=== PATIENT | male | born 1945 | race Caucasian/White ===

== ENCOUNTER 2017-01-14 12:17 | Emergency (ER) | payer MEDICARE, BC ==
[2017-01-14] MEDS ORDERED: Sodium Chloride 0.9% 1,000 ML IV ONE (13:15)
[2017-01-14] MEDS ORDERED: Ondansetron 4 MG/2 ML SDV IVPUSH ONE (13:15)
[2017-01-14 13:56] VITALS: BP 151/89
[2017-01-14 14:00] LABS: CHLORIDE,CL 104 mmol/L (98-115); SODIUM,NA 142 mmol/L (136-145)
--- NOTE | 2017-01-14 14:26 | EDM.PDOC ---
ED HPI GI/ABDOMINAL - General Stated Complaint: DIARRHEA, NAUSEA, VOMITING Time Seen by Provider: 01/14/17 13:15 Source of Information: Reports: Patient History Limitations: Reports: No limitations - History of Present Illness INITIAL COMMENTS - FREE TEXT/NARRATIVE: Patient presents with vomiting and diarrhea. Diarrhea started last night and vomiting several times today. He is feeling lightheaded when he stands up now. Pt is getting chemotherapy for pancreatic cancer stage 4. He is developing ascites but has never had to have it drained. His talked to the oncologist in [place] today and they advised he come to local ER for evaluation and fluids then send up to them if the ascites needs draining. He is scheduled to go to [place] tomorrow for chemotherapy again. The patient and his tell me that his abdomen is growing larger noticeably just since this morning. - Related Data Allergies/ADRs: Allergies Allergy/AdvReac Type Severity Reaction Status Date / Time ibuprofen Allergy Stomach Verified 01/14/17 13:50 Upset Home Meds: Home Meds Gabapentin [Neurontin] 300 mg PO BID 10/04/16 [History] Sertraline [Zoloft] 50 mg PO 0900 01/14/17 [History] Past Medical History HEENT History: Reports: Impaired vision Cardiovascular History: Reports: High cholesterol, Hypertension Respiratory History: Reports: None Gastrointestinal History: Reports: Diverticulosis Genitourinary History: Reports: Other (see below) Other Genitourinary History: urinary frequency, dribbling Musculoskeletal History: Reports: Other (see below) Other Musculoskeletal History: Left leg fracture Neurological History: Reports: TIA Psychiatric History: Reports: None Endocrine/Metabolic History: Reports: None Immunologic History: Reports: Immunosuppression Oncologic (Cancer) History: Reports: Pancreatic Dermatologic History: Reports: None - Infectious Disease History Infectious Disease History: Reports: Other (see below) Other Infectious Disease History: malaria - Past Surgical History Head Surgeries/Procedures: Reports: None HEENT Surgical History: Reports: None Cardiovascular Surgical History: Reports: None Respiratory Surgical History: Reports: None GI Surgical History: Reports: Colonoscopy, EGD, Polypectomy Male Surgical History: Reports: None Endocrine Surgical History: Reports: None Neurological Surgical History: Reports: None Musculoskeletal Surgical History: Reports: None Oncologic Surgical History: Reports: None Social & Family History - Family History Family Medical History: Noncontributory HEENT: Reports: None Cardiac: Reports: Other (see below) (mother with unknown heart problems) Respiratory: Reports: Other (see below) (father with pulmonary problems) GI: Reports: None : Reports: None OBGYN: Reports: None Musculoskeletal: Reports: None Neurological: Reports: None Psychiatric: Reports: None Endocrine/Metabolic: Reports: None Hematologic: Reports: None Immunologic: Reports: None Dermatologic: Reports: None Oncologic: Reports: Other (see below) (father with lung and bone cancer) - Tobacco Use Smoking Status *Q: Former Smoker Years of Tobacco use: 20 Packs/Tins Daily: 2 Used Tobacco, but Quit: Yes Month Tobacco Last Used: 35 years ago Second Hand Smoke Exposure: No - Caffeine Use Caffeine Use: Reports: None - Alcohol Use Number of Drinks Per Day: 2 - Recreational Drug Use Recreational Drug Use: No - Living Situation & Occupation Living situation: Reports: ED ROS GENERAL - Review of Systems Review Of Systems: See Below Constitutional: Denies: fever, chills HEENT: Reports: No symptoms Respiratory: Denies: Shortness of Breath, Cough Cardiovascular: Reports: Lightheadedness. Denies: Chest pain, Syncope GI/Abdominal: Reports: Abdominal pain, Diarrhea, Vomiting : Reports: no symptoms Musculoskeletal: Reports: no symptoms Skin: Denies: cyanosis, jaundice, mottled, pallor, diaphoresis Neurological: Denies: Confusion, Headache, Trouble Speaking, Difficulty Walking Psychiatric: Denies: Agitation, Anxiety, Confusion ED EXAM, GI/ABD - Physical Exam Exam: See Below Exam Limited By: No limitations General Appearance: alert, WD/WN, no apparent distress Eyes: bilateral: normal appearance, EOMI Ears: normal external exam, hearing grossly normal Throat/Mouth: Normal lips, Normal voice, No airway compromise Head: atraumatic, normocephalic Neck: full range of motion Respiratory/Chest: no respiratory distress, lungs clear, normal breath sounds Cardiovascular: regular rate, rhythm, no murmur GI/Abdominal: hyperactive bowel sounds, distention (moderate). No: rigidity Back Exam: No: CVA tenderness (L), CVA tenderness (R) Extremities: normal inspection, normal range of motion Neurological: alert, oriented, normal cognition, no motor/sensory deficits Psychiatric: normal affect, normal mood Skin Exam: Warm, Dry, Intact, Normal color, No rash Course - Vital Signs Last Recorded V/S: Last Vital Signs Temp 99.0 F 01/14/17 13:54 Pulse 114 H 01/14/17 13:54 Resp 18 01/14/17 13:54 BP 151/89 H 01/14/17 13:54 Pulse Ox 91 L 01/14/17 13:54 - Orders/Labs/Meds Orders: Active Orders 24 hr Category Date Time Status Implanted Port Access [RC] DAILY Care 01/14/17 14:07 Active Labs: Laboratory Tests 01/14/17 01/14/17 Range/Units 13:33 13:33 WBC 14.0 H (5.0-10.0) 10^3/uL RBC 4.80 (4.50-6.00) 10^6/uL Hgb 13.8 (13.0-17.0) g/dL Hct 42.1 (40.0-52.0) % MCV 87.8 (82.0-92.0) fL MCH 28.7 (27.0-31.0) pg MCHC 32.7 (32.0-36.0) g/dL RDW 18.3 H (11.5-14.5) % Plt Count 606 H (150-300) 10^3/uL MPV 7.2 L (7.4-10.4) fL Neut % (Auto) 57.1 (50.0-70.0) % Lymph % (Auto) 31.5 (20.0-40.0) % [place] % (Auto) 9.5 H (2.0-8.0) % Eos % (Auto) 0.2 L (1.0-3.0) % Baso % (Auto) 1.7 H (0.0-1.0) % Neut # (Auto) 8.1 H (2.5-7.0) 10^3/uL Lymph # (Auto) 4.4 H (1.0-4.0) 10^3/uL [place] # (Auto) 1.3 H (0.1-0.8) 10^3/uL Eos # (Auto) 0.0 L (0.1-0.3) 10^3/uL Baso # (Auto) 0.2 H (0.0-0.1) 10^3/uL Sodium 142 (136-145) mmol/L Potassium 3.7 (3.3-5.3) mmol/L Chloride 104 (98-115) mmol/L Carbon Dioxide 26.8 (21.0-32.0) mmol/L BUN 11 (6-25) mg/dL Creatinine 0.63 (0.51-1.17) mg/dL Est Cr Clr Drug Dosing 121.46 mL/min Estimated GFR (MDRD) > 60 mL/min Glucose 153 H (70-110) mg/dL Calcium 8.5 L (8.7-10.3) mg/dL Total Bilirubin 0.4 (0.2-1.0) mg/dL AST 16 (15-37) U/L ALT 22 (12-78) U/L Alkaline Phosphatase 100 (46-116) IU/L Total Protein 6.5 (6.4-8.2) g/dL Albumin 2.75 L (3.00-4.80) g/dL Meds: Medications Discontinued Medications Generic Name Dose Route Start Last Admin Trade Name Freq PRN Reason Stop Dose Admin Sodium Chloride 1,000 mls @ 999 mls/hr 01/14/17 13:15 01/14/17 13:45 Normal Saline IV 01/14/17 14:15 999 mls/hr .BOLUS ONE Administration Ondansetron HCl 4 mg 01/14/17 13:15 01/14/17 13:48 Zofran IVPUSH 01/14/17 13:16 4 mg ONETIME ONE Administration - Re-Assessments/Exams Free Text/Narrative Re-Assessment/Exam: 01/14/17 14:45 After IV fluids and Zofran patient is feeling much better. Discussed case with his oncologist's on-call partner at [facility] who felt the elevations in WBC and platelets may possibly be secondary to his chemotherapy treatment. She said he can be admitted tonight for planned paracentesis tomorrow or he can just come tomorrow for his chemotherapy appointment and a paracentesis depending on how the patient is feeling now. I discussed this with the patient and his and they will go tomorrow. 01/14/17 15:00 Patient feeling better. He can stand up without feeling lightheaded now and the nausea is controlled. Pt is discharged in stable condition. Departure - Departure Time of Disposition: 14:49 Disposition: Home, Self-Care 01 Condition: good Clinical Impression: Nausea and vomiting in adult, Hypovolemia dehydration Additional Instructions: 1. Drink plenty of water/fluids to avoid dehydration. 2. Take your nausea medication as directed. 3. Go to your appointment tomorrow with the oncologist. If your appointment is later in the day call them in the morning to see if they want you to come in early for the paracentesis. - My Orders Last 24 Hours: My Active Orders 01/14/17 14:07 Implanted Port Access [RC] DAILY - Assessment/Plan Last 24 Hours: My Active Orders 01/14/17 14:07 Implanted Port Access [RC] DAILY
== END 2017-01-14 15:20 | disposition home or self-care (01) ==
LOC: KA.ED 12:17
DX: R11.2 Nausea with vomiting, unspecified (principal); E86.0 Dehydration; I10 Essential (primary) hypertension; E78.00 Pure hypercholesterolemia, unspecified; R35.0 Frequency of micturition; Z86.73 Personal history of transient ischemic attack (TIA), and cerebral infarction without residual deficits; C25.9 Malignant neoplasm of pancreas, unspecified; Z87.891 Personal history of nicotine dependence; Z88.8 Allergy status to other drugs, medicaments and biological substances; Z79.899 Other long term (current) drug therapy
CPT/HCPCS: 36415; 80053; 85025; 96361; 96374; 99284; J2405; J7030